=== PATIENT | female | born 2000 | race Two or more races ===

== ENCOUNTER 2024-03-10 13:47 | Outpatient (CLI) | payer OTHER ==
[2024-03-10 23:04] LABS: BACTERIAL VAGINOSIS DNA POSITIVE (NEGATIVE); CANDIDA GLABRATA DNA NEGATIVE (NEGATIVE); CANDIDA GROUP DNA POSITIVE (NEGATIVE); CANDIDA KRUSEI DNA NEGATIVE (NEGATIVE); TRICHOMONAS VAGINALIS DNA NEGATIVE (NEGATIVE)
== END 2024-03-10 13:50 | disposition home or self-care (01) ==
LOC: LAB.N 13:47
PROVIDERS: ATTEND Physician Assistant Medical
DX: N30.00 Acute cystitis without hematuria (principal); R10.2 Pelvic and perineal pain
CPT/HCPCS: 81514; 87086